=== PATIENT | male | born 1975 | race Caucasian/White ===

== ENCOUNTER 2017-06-30 03:38 | Emergency (ER) | payer OTHER ==
[2017-06-30] MEDS ORDERED: HYDROmorphONE/DILAUDID 1 MG/ML INJ ONE (03:59)
[2017-06-30] MEDS ORDERED: HYDROmorphONE/DILAUDID 1 MG/ML INJ IVP ONE ×3 (04:03→08:21)
[2017-06-30 04:06] LABS: PLATELET COUNT 247 10^3/uL (150-400)
[2017-06-30] MEDS ORDERED: fentaNYL 100 MCG/2 ML INJ IVP ONE ×2 (05:01→06:33)
[2017-06-30] MEDS ORDERED: IOPAMIDOL (ISOVUE-300) 100 ML BTL ONE (05:07)
[2017-06-30] MEDS ORDERED: HYDROmorphONE/DILAUDID 1 MG/ML INJ IVP PRN (05:27)
[2017-06-30] MEDS ORDERED: ONDANSETRON 4 MG/2 ML VIAL IVP PRN (05:27)
[2017-06-30] MEDS ORDERED: D5W 1/2 NS W/ 20 KCl/L 1,000 ML IV SCH (05:30)
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
[2017-06-30] MEDS ORDERED: PROPOFOL 200 MG/20 ML VIAL ONE (06:53)
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
[2017-06-30] MEDS ORDERED: PROPOFOL 200 MG/20 ML VIAL IVP ONE (07:00)
[2017-06-30] MEDS ORDERED: DIAZEPAM 10 MG/2 ML SYR IVP ONE (07:55)
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
--- NOTE | 2017-06-30 08:51 | GOP ---
[f rep st] OPERATIVE REPORT DATE OF OPERATION: SURGEON: Vijay Yoo MD PREOPERATIVE DIAGNOSIS: POSTOPERATIVE DIAGNOSIS: PROCEDURE PERFORMED: Hip closed reduction. FINDINGS: DESCRIPTION OF PROCEDURE: Under conscious sedation provided by the ED, a closed reduction was attemp leno of the left hip, with traction and rotation of the hip, there was a palpable reduction achieved. While maintaining reduction the hip slid out another indicating instability, another reduction was a ttempted, keeping the hip in flexion and extension, and then placed in a skin traction type device. AP pelvis afterward showed a maintained reduction. Post reduction, the patient had intact EHL, FHL. The sciatic nerve appeared intact. ASSESSMENT AND PLAN: 1. Left posterior wall acetabular fracture, due to the size of the fragment, this is indicative for open reduction and internal fixation. The patient will require a transfer to a dedicated trauma faci lity with a dedicated trauma surgeon for this surgery. I spoke personally with Dr. West at [facility], who accepted transfer of the patient, per Dr. West. The patient will likely have definitive fi xation early this week. A closed reduction was attempted in the ER, and reduction was maintained wit h skin traction. He will be transported in this fashion to the [facility] ER. I spoke to the ER myself. 2. Possible nondisplaced cervical spine fracture. On personal review of the CT scan, there is an ab normality in the base of the dens. Per ER report, this was read as negative, and the patient did not have any neck pain when removing the cervical collar and on testing. However, I did recommend he be placed in a cervical collar due to the distracting injury. /[id number]/MODL
[2017-06-30 09:19] VITALS: BP 142/74; PULSE 104; RESP 22; TEMP 98.2; O2SAT 97
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
== END 2017-06-30 08:50 | disposition short-term general hospital (02) ==
LOC: EDBD 03:38 → UNDOADMIN 05:27
PROC: 0SSBXZZ Reposition Left Hip Joint, External Approach (ICD-10-PCS; principal; 2017-06-30)
DX: S73.005A Unspecified dislocation of left hip, initial encounter (principal); S32.402A Unspecified fracture of left acetabulum, initial encounter for closed fracture; V47.6XXA Car passenger injured in collision with fixed or stationary object in traffic accident, initial encounter; Y92.410 Unspecified street and highway as the place of occurrence of the external cause; Y99.8 Other external cause status
CPT/HCPCS: 80305; 96374; G0480; J1170; J2704; J3010; L0172; Q9967